=== PATIENT | male | born 1960 | race African-American/Black ===

== ENCOUNTER 2024-08-20 18:21 | Emergency (ER) | payer SELFPAY ==
[~2024-08-20] VITALS: Ht 175.3 cm; Wt 79.0 kg
[2024-08-20 18:26] VITALS: BP 124/78; PULSE 93; RESP 16; TEMP 36.7; O2SAT 99
== END 2024-08-20 22:44 | disposition home or self-care (01) ==
LOC: ER 18:21
DX: T82.838A Hemorrhage due to vascular prosthetic devices, implants and grafts, initial encounter (principal); I10 Essential (primary) hypertension; C34.90 Malignant neoplasm of unspecified part of unspecified bronchus or lung; Y92.89 Other specified places as the place of occurrence of the external cause
CPT/HCPCS: 99283